=== PATIENT | female | born 1960 | race Caucasian/White ===

== ENCOUNTER 2017-03-20 13:57 | Day surgery (SDC) | payer OTHER ==
[2017-03-20] MEDS ORDERED: LIDOCAINE 4% SOLUTION 50 ML BTL (14:32)
[2017-03-20] MEDS ORDERED: FENTAnyl 50 MCG/ML VIAL (15:25)
[2017-03-20] MEDS ORDERED: MIDAZOLAM 1 MG/ML 2 ML INJ ×2 (15:25)
== END 2017-03-20 15:38 | disposition home or self-care (01) ==
LOC: GIL 13:57
DX: K29.50 Unspecified chronic gastritis without bleeding (principal); I10 Essential (primary) hypertension; E78.5 Hyperlipidemia, unspecified
CPT/HCPCS: 43239; 88305; 88312